=== PATIENT | male | born 1985 | race Caucasian/White ===

== ENCOUNTER 2022-02-21 08:30 | Emergency (ER) | payer MEDICAID ==
[~2022-02-21] VITALS: Ht 182.9 cm; Wt 115.0 kg
[2022-02-21 08:37] VITALS: BP 121/72
[2022-02-21 09:12] LABS: CLARITY URINE CLEAR (CLEAR); COLOR URINE YELLOW (YELLOW); KETONES URINE NEGATIVE (NEGATIVE); LEUKOCYTE ESTERASE URINE 1+ (NEGATIVE); NITRITE URINE NEGATIVE (NEGATIVE); OCCULT BLOOD URINE NEGATIVE (NEGATIVE); PROTEIN URINE NEGATIVE (NEGATIVE); SPECIFIC GRAVITY URINE 1.018 (1.005-1.030); UROBILINOGEN URINE 0.2 E.U./dL (0.2-1.0)
[2022-02-21] MEDS ORDERED: DOXY100C5 MT (10:13)
[2022-02-21] MEDS ORDERED: ACYC200C31 MT (10:15)
[2022-02-21] MEDS ORDERED: CEFTRIAXONE SODIUM 500 MG/VIAL IM ONE (10:15)
[2022-02-21] MEDS ORDERED: PENICILLIN G BENZATHINE 2,400,000 UNITS/4ML SYR IM ONE (10:15)
[2022-02-21] MEDS ORDERED: KETOROLAC 15MG/ML VIAL IM ONE (10:15)
[2022-02-21] MEDS ORDERED: PENICILLIN G BENZATHINE 1,200,000 UNITS/2ML SYR IM NR (10:30)
== END 2022-02-21 11:07 | disposition home or self-care (01) ==
LOC: ER 08:30
DX: R21 Rash and other nonspecific skin eruption (principal); N39.0 Urinary tract infection, site not specified; Z20.2 Contact with and (suspected) exposure to infections with a predominantly sexual mode of transmission
CPT/HCPCS: 81003; 96372; 99284; J0561; J0696; J1885